=== PATIENT | male | born 1940 | race Caucasian/White ===

== ENCOUNTER → 2016-10-17 | Outpatient (CLI) | payer MEDICARE, OTHER ==
--- NOTE | ~2016-10-17 | MR113 ---
[facility] A Service of [facility] RADIOLOGY TEXT RESULTS PATIENT: YANN RICHARDSON LOCATION: [facility] : 44 UNIT #: [id number] AGE: [address]: Cruz Richardson MD SEX: M ORDER DR: [id number] [address] [id number] [id number] O MR#: [id number] Acc #: [id number] NAME: YANN RICHARDSON : 1940 SEX: M STUDY DATE/TIME: 10/17/2016 13:46 UNIT: [facility] ROOM: STUDY DESCRIPTION: MR Lumbar Wo Contrast Attending Physician: Cruz Richardson M.D. Referring Physician: Cruz Richardson M.D. Ordering Physician: Cruz Richardson M.D. Primary Care Physician: Cruz Richardson M.D. MRI CENTER REPORT This report is preliminary unless electronic signature is present. EXAM Lumbar MRI HISTORY Low back pain nonradiating for the past 2 years worsening over the past year with stiffness and decreased range of motion. TECHNIQUE Multiplanar imaging of the lumbar spine was performed with short and long TR. FINDINGS Alignment is satisfactory. There is desiccation seen at all lumbar discs. There is minimal concentric disc bulging at L3-4 and L4-5 without significant canal narrowing. Posterior facet hypertrophy is seen to a mild degree at L2-3 and L3-4, to a moderate degree at L4-5. There is only mild central stenosis as a result and the foramina are widely patent. No disc herniations are seen. There is no evidence of marrow edema or paraspinous mass. IMPRESSION Mild to moderate facet hypertrophy at the [id number] lumbar levels. Mild degenerative changes of the lumbar discs with mild concentric disc bulging L3-4 and L4-5. Dictated by... Dinesh Levine M.D. THIS IS AN ELECTRONICALLY VERIFIED REPORT Dinesh Levine M.D. at 10/18/2016 3:45 PM IBETH/ebony [facility] A Service of [facility] & [facility] RADIOLOGY TEXT RESULTS PATIENT: YANN RICHARDSON [id number] [birth year] UNIT #: [id number] AGE: [address]: Cruz Richardson MD SEX: M ORDER DR: TD: 10/18/2016 15:29 JOB #: [id number] MRI CENTER REPORT Page 1 of 1
== END | disposition home or self-care (01) ==
LOC: SMRI 13:09
DX: M54.5 Low back pain (principal); M51.36 Other intervertebral disc degeneration, lumbar region
CPT/HCPCS: 72148